=== PATIENT | female | born 1950 | race Two or more races ===

== ENCOUNTER 2021-11-14 21:20 | Emergency (ER) | payer MEDICARE, OTHER ==
[~2021-11-14] VITALS: Ht 157.5 cm; Wt 90.7 kg
[2021-11-14] MEDS ORDERED: diphenhydrAMINE HCL 50 MG CAPSULE ONE (22:44)
[2021-11-14] MEDS ORDERED: predniSONE 20 MG TABLET ONE (22:44)
[2021-11-14] MEDS ORDERED: FAMOTIDINE (20 MG) 20 MG TABLET ONE (22:44)
--- NOTE | 2021-11-14 22:48 | NUR ---
BIBSISTER C/O RASH TO BODY SINCE 2PM. PT A/OX4. TOLERATING R/A WELL WITH NO SOB; RESP EVEN AND NON LABORED. CONNECTED PT TO POX AND MONITOR. SAFETY MEASURES IN PLACE.
[2021-11-14] MEDS ORDERED: PRED20TA PO (22:53)
[2021-11-14] MEDS ORDERED: DIPH25CA83 PO (22:53)
[2021-11-14] MEDS ORDERED: FAMO-131 PO (22:53)
[2021-11-14] MEDS ORDERED: FAMOTIDINE (20 MG) 20 MG TABLET PO ONE (23:00)
[2021-11-14] MEDS ORDERED: predniSONE 10 MG TABLET PO ONE (23:00)
[2021-11-14] MEDS ORDERED: diphenhydrAMINE HCL 50 MG CAPSULE PO ONE (23:00)
--- NOTE | 2021-11-14 23:07 | NUR ---
Patient discharged to home in stable condition. Written and verbal after care instructions given. Patient verbalizes understanding of instruction. PT ambulatory with a steady gait
[2021-11-14 23:54] VITALS: BP 156/79
== END 2021-11-14 23:07 | disposition home or self-care (01) ==
LOC: ER 21:49
DX: L50.9 Urticaria, unspecified (principal); E11.9 Type 2 diabetes mellitus without complications
CPT/HCPCS: 99284; Q0163; J7512 ×2